=== PATIENT | female | born 1990 | race Caucasian/White ===

== ENCOUNTER 2017-09-08 10:30 | Emergency (ER) | payer OTHER ==
[~2017-09-08] VITALS: Ht 160 cm; Wt 100.0 kg
[~2017-09-08 10:30] MED LIST: OMEP40CA12 PO
[2017-09-08 10:42] VITALS: BP 130/82
[2017-09-08] MEDS ORDERED: ACETAMINOPHEN 500 MG TABLET PO ONE (12:00)
[2017-09-08] MEDS ORDERED: ONDANSETRON HCL 4 MG TABLET PO ONE (12:00)
== END 2017-09-08 12:51 | disposition home or self-care (01) ==
LOC: EMS 10:30
DX: J02.9 Acute pharyngitis, unspecified (principal); R11.10 Vomiting, unspecified; Z90.49 Acquired absence of other specified parts of digestive tract
CPT/HCPCS: 87430; 99283; Q0162